=== PATIENT | male | born 2000 | race Caucasian/White ===

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

== ENCOUNTER 2021-06-03 23:07 | Emergency (ER) | payer BC ==
[2021-06-03] MEDS ORDERED: KEFLEX 500 MG PO ONE (23:46)
[2021-06-03 23:47] VITALS: BP 160/92; PULSE 116
--- NOTE | 2021-06-03 23:52 | ERPHSYRPT ---
- History of Present Illness Time Seen by Provider: 06/03/21 23:09 Source: patient Exam Limitations: no limitations Physician History: 21-year-old male presented in the ER with chief complaint of possible piece of glass embedded in his left foot when he got mad and walked on a broken glass prior to arrival. Patient report he has been drinking quite a bit lately and last drink was almost prior to arrival. Up-to-date with tetanus. Complaining of pain moderate to severe, sharp in the left heel and big toe area. Skin abrasion big toe and minimal bleeding from the heel. Patient reports she removed a piece of glass from the toe area but there is definitely 1 in the heel which make it difficult to have any weightbearing. Timing/Duration: today, constant, sudden Quality: painful Severity: moderate Location: feet Associated Symptoms: swelling/mass/lumps Allergies/Adverse Reactions: No Known Drug Allergies Allergy (Verified 07/31/19 19:51) Hx Tetanus, Diphtheria Vaccination/Date Given: Yes Hx Influenza Vaccination/Date Given: No Hx Pneumococcal Vaccination/Date Given: No - Review of Systems Constitutional: No Symptoms Eyes: No Symptoms Ears, Nose, & Throat: No Symptoms Respiratory: No Symptoms Cardiac: No Symptoms Musculoskeletal: Injury Skin: Skin Lesions Neurological: No Symptoms Endocrine: No Symptoms Hematologic/Lymphatic: No Symptoms - Past Medical History Pertinent Past Medical History: No Neurological History: No Pertinent History ENT History: No Pertinent History Cardiac History: No Pertinent History Respiratory History: No Pertinent History Endocrine Medical History: No Pertinent History Musculoskeletal History: No Pertinent History GI Medical History: No Pertinent History History: No Pertinent History Psycho-Social History: No Pertinent History Male Reproductive Disorders: No Pertinent History - Past Surgical History Past Surgical History: No Neuro Surgical History: No Pertinent History Cardiac: No Pertinent History Respiratory: No Pertinent History Gastrointestinal: No Pertinent History Genitourinary: No Pertinent History Musculoskeletal: No Pertinent History Male Surgical History: No Pertinent History - Social History Smoking Status: Never smoker Exposure to second hand smoke: No Drug Use: none Patient Lives Alone: No - Physical Exam General Appearance: no apparent distress, alert Eye Exam: PERRL/EOMI Neck Exam: normal inspection, full range of motion Respiratory Exam: normal breath sounds, lungs clear Cardiovascular Exam: regular rate/rhythm, normal heart sounds Extremity Exam: other (Superficial abrasion with skin tear left big toe medial aspect without any obvious visible piece of glass. No palpable piece of glass. There is a small cut in the left heel with underlying foreign body/tenderness.) Neurologic Exam: alert, oriented x 3, cooperative SpO2 Interpretation: normal SpO2: 96 O2 Delivery: Room Air Procedures - Additional Procedures Progress: Procedure foreign body removal left foot. Time 11:42 PM date 06/03/2021. Thoroughly cleaned with Hibiclens. Given 3.5 cc lidocaine without epi and area dissected with forcep and with the help of 18-gauge needle piece of glass removed. Area is probed with no palpable glass fell. Patient tolerated procedure very well. - Progress Progress: improved Progress Note: 06/03/21 23:53 Memories removed. Recommended x-rays which he refused. Patient does drink every day but he is holding conversation fine and not in any distress, not altered or confused at all. Patient states "I do not think it is necessary to do x-ray and would be just an extra bill, will come back if does not feel better and will do x-rays later". Is placed on Keflex. Ibuprofen to take as needed. Discussed signs symptoms of worsening needing return to ER which he seems understanding. Counseled pt/family regarding: diagnosis, need for follow-up - Departure Departure Disposition: Home Clinical Impression: Foreign body foot/toe Condition: Stable Critical Care Time: No Referrals: DOCTOR,NO FAMILY [Primary Care Provider] - Follow up/PCP as directed FEROZ GALLEGOS DPM [ACTIVE STAFF] - Follow up/PCP as directed (In 2 days for reevaluation) Instructions: Removal of Foreign Body in Skin Additional Instructions: Weightbearing as tolerated. Follow up with podiatry for reevaluation. Return to ER for increasing pain, swelling, difficulty weightbearing, redness, fever chills etc. Take Tylenol/ibuprofen as needed. Prescriptions: Ibuprofen 600 mg PO Q6HPRN PRN 10 Days #20 tablet PRN Reason: Pain Cephalexin Mh 500 mg [Keflex 500 mg] 500 mg PO TID #14 cap
[2021-06-03] MEDS ORDERED: KEFLEX 500 MG ONE (23:53)
[2021-06-03 23:56] VITALS: O2SAT 96
== END 2021-06-04 | disposition home or self-care (01) ==
LOC: ED 23:07
DX: S91.342A Puncture wound with foreign body, left foot, initial encounter (principal); W25.XXXA Contact with sharp glass, initial encounter; W45.8XXA Other foreign body or object entering through skin, initial encounter
CPT/HCPCS: 28190; 99283; A9270-GY